=== PATIENT | male | born 2000 | race Caucasian/White ===

== ENCOUNTER 2022-11-23 09:21 | Outpatient (CLI) | payer OTHER, SELFPAY ==
--- NOTE | ~2022-11-23 | US_ITS ---
Thyroid ultrasound. Clinical History: Multinodular goiter Findings: Real-time sonography of the thyroid gland was performed. The right lobe measures 5.2 x 1.7 x 1.6 cm. The left lobe measures 4.5 x 1.2 x 1.4 cm. The isthmus is 4 mm in AP diameter. Thyroid parenchyma is heterogeneous. Probable 4 mm cystic nodule at the left midpole. Questionable 7 mm isoechoic nodule at the left mid to upper pole. Impression: Heterogeneous parenchyma with possible subcentimeter nodules.. Reviewed, dictated and finalized at location . Impression: Heterogeneous parenchyma with possible subcentimeter nodules..
== END 2022-11-23 09:22 | disposition home or self-care (01) ==
LOC: CHSIMG 09:23
PROVIDERS: PCP Registered Nurse; Visit Provider Registered Nurse
DX: E04.2 Nontoxic multinodular goiter (principal)
CPT/HCPCS: 76536